=== PATIENT | female | born 1985 | race Two or more races ===

== ENCOUNTER 2022-04-28 17:12 | Emergency (ER) | payer OTHER ==
[~2022-04-28] VITALS: Ht 165.1 cm; Wt 64.0 kg
== END 2022-04-28 23:58 | disposition home or self-care (01) ==
LOC: ER 17:12
DX: U07.1 COVID-19 (principal)

== ENCOUNTER 2023-03-18 09:01 | Emergency (ER) | payer OTHER ==
[~2023-03-18] VITALS: Ht 162.6 cm; Wt 67.1 kg
== END 2023-03-18 14:21 | disposition home or self-care (01) ==
LOC: ER 09:01
DX: B34.9 Viral infection, unspecified (principal); U07.1 COVID-19; G43.809 Other migraine, not intractable, without status migrainosus

== ENCOUNTER 2023-10-28 12:43 | Emergency (ER) | payer OTHER ==
[~2023-10-28] VITALS: Ht 162.6 cm; Wt 62.6 kg
== END 2023-10-28 16:19 | disposition home or self-care (01) ==
LOC: ER 12:43
DX: B34.9 Viral infection, unspecified (principal); Z20.822 Contact with and (suspected) exposure to COVID-19

== ENCOUNTER 2024-07-02 09:11 | Emergency (ER) | payer OTHER ==
[~2024-07-02] VITALS: Ht 162.6 cm; Wt 63.5 kg
[2024-07-02] MEDS ORDERED: ORPHENADRINE CITRATE 30 MG/ML AMPUL IM STA (09:27)
[2024-07-02] MEDS ORDERED: KETOROLAC TROMETHAMINE 30 MG VIAL IM STA (09:27)
== END 2024-07-02 12:46 | disposition home or self-care (01) ==
LOC: ER 09:13
DX: M54.2 Cervicalgia (principal)

== ENCOUNTER 2025-09-27 09:36 | Emergency (ER) | payer OTHER ==
[~2025-09-27] VITALS: Ht 162.6 cm; Wt 62.6 kg
[2025-09-27] MEDS ORDERED: CEFTRIAXONE SODIUM 1,000 MG VIAL IM ONE (10:45)
[2025-09-27] MEDS ORDERED: MONTELUKAST SODIUM 10 MG TABLET PO ONE (10:45)
[2025-09-27] MEDS ORDERED: BENZONATATE 200 MG CAPSULE PO ONE (10:45)
[2025-09-27] MEDS ORDERED: METHYLPREDNISOLONE SOD SUCC 40 MG VIAL IM ONE (10:45)
[2025-09-27 11:19] LABS: BASO % 0.7 % (0.1-1.2); EOS # 0.17 (0.04-0.54); EOS % 2.4 % (0.7-7.0); LYMPH # 1.73 (1.18-3.74); LYMPH % 24.9 % (19.3-53.1); MEAN PLATELET VOLUME 11.20 fl (9.4-12.4); MONO # 0.80 (0.24-0.82); MONO % 11.5 % (4.7-12.5); NEUT # 4.19 (1.56-6.13); NEUT % 60.2 % (34.0-71.1); RED CELL DISTRIBUTION WIDTH 13.2 % (11.6-14.4)
[2025-09-27 12:23] LABS: COVID-19 AG NEGATIVE (NEGATIVE)
[2025-09-27] MEDS ORDERED: LEVALBUTER0.63 MG/3 IH (12:50)
[2025-09-27] MEDS ORDERED: PEPCID AC20 MG PO (12:50)
[2025-09-27] MEDS ORDERED: BENZONATATE200 M1 PO (12:50)
[2025-09-27] MEDS ORDERED: AZITHROMYCIN500 MG PO (12:50)
== END 2025-09-27 13:35 | disposition home or self-care (01) ==
LOC: ER 09:37
PROVIDERS: General Practice
DX: R05.8 Other specified cough (principal); R50.9 Fever, unspecified; Z20.822 Contact with and (suspected) exposure to COVID-19